=== PATIENT | female | born 1995 | race African-American/Black ===

== ENCOUNTER 2019-10-21 21:19 | Emergency (ER) | payer MEDICAID ==
[~2019-10-21] VITALS: Ht 180.3 cm; Wt 110.5 kg
[2019-10-21 21:30] VITALS: Ht 180.3 cm; Wt 110.5 kg
[2019-10-21] MEDS ORDERED: HYDROCHLOROTH12.5 M1 PO (21:31)
[2019-10-21] MEDS ORDERED: FOLIC ACID1 MG PO (21:32)
[2019-10-21 22:46] LABS: BASOPHILS 0.3 % (0-2); EOSINOPHILS 2.6 % (0-7); HEMATOCRIT 40.1 % (36.0-48.0); HEMOGLOBIN 12.9 g/dL (12-16); IMMATURE GRANULOCYTES 0.1 % (0-5); LYMPHOCYTES 48.6 % (15-50); MCH 23.9 pg (26.0-34.0); MCHC 32.2 g/dL (31.0-37.0); MCV 74.3 fL (80.0-100.0); MEAN PLATELET VOLUME 10.8 fL (7.4-10.4); MONOCYTES 7.2 % (2-11); NEUTROPHILS 41.2 % (40-80); PLATELET COUNT 236 10x3/uL (130-400); RDW 14.7 % (11.5-14.5); WBC 6.9 10x3/uL (4.8-10.8)
[2019-10-21 22:56] LABS: CALCIUM 9.2 mg/dL (8.5-10.1); CARBON DIOXIDE 22.7 mmol/L (21.0-32.0); POTASSIUM - SERUM 3.7 mmol/L (3.5-5.1)
[2019-10-21 23:02] LABS: ALBUMIN 4.3 g/dL (3.4-5.0); BILIRUBIN - TOTAL 0.34 mg/dL (0.2-1.3); C-REACTIVE PROTEIN 0.4 mg/dL (0.0-0.9); URIC ACID 5.9 mg/dL (2.6-7.2)
[2019-10-21] MEDS ORDERED: NAPROSYN500 MG PO (23:33)
[2019-10-22 00:09] VITALS: BP 122/70
== END 2019-10-22 00:11 | disposition home or self-care (01) ==
LOC: D.ER 21:19
PROVIDERS: Family Medicine
DX: S93.601A Unspecified sprain of right foot, initial encounter (principal); I10 Essential (primary) hypertension; J45.909 Unspecified asthma, uncomplicated; X58.XXXA Exposure to other specified factors, initial encounter

== ENCOUNTER 2020-05-23 18:30 | Emergency (ER) | payer BC ==
[~2020-05-23] VITALS: Ht 180.3 cm; Wt 110.0 kg
[~2020-05-23 18:30] MED LIST: FOLIC ACID1 MG PO; HYDROCHLOROTH12.5 M1 PO; NAPROSYN500 MG PO
[2020-05-23 18:50] VITALS: Ht 180.3 cm; Wt 110.0 kg
[2020-05-23] MEDS ORDERED: LISINOPRIL20 MG PO (18:51)
[2020-05-23] MEDS ORDERED: PHENERGAN25 M1 PO (18:51)
[2020-05-23] MEDS ORDERED: IMITREX100 MG PO (18:52)
[2020-05-23 19:22] LABS: BASOPHILS 0.3 % (0-2); HEMATOCRIT 38.9 % (36.0-48.0); HEMOGLOBIN 12.6 g/dL (12-16); IMMATURE GRANULOCYTES 0.1 % (0-5); LYMPHOCYTE ABS# 3.06 10x3/uL (1.18-3.74); LYMPHOCYTES 45.5 % (15-50); MCH 24.3 pg (26.0-34.0); MCHC 32.4 g/dL (31.0-37.0); MEAN PLATELET VOLUME 10.9 fL (7.4-10.4); MONOCYTES 7.3 % (2-11); NEUTROPHIL ABS# 2.88 10x3/uL (1.56-6.13); NEUTROPHILS 42.8 % (40-80); PLATELET COUNT 224 10x3/uL (130-400); RBC 5.19 10x6/uL (4.00-5.40); RDW 14.5 % (11.5-14.5); WBC 6.7 10x3/uL (4.8-10.8)
[2020-05-23 19:31] LABS: ANION GAP 17.4 mmol/L (8-16); CALCIUM 8.9 mg/dL (8.5-10.1); CARBON DIOXIDE 22.1 mmol/L (21.0-32.0); POTASSIUM - SERUM 3.5 mmol/L (3.5-5.1)
[2020-05-23 19:39] LABS: ALBUMIN 3.9 g/dL (3.4-5.0); BILIRUBIN - TOTAL 0.27 mg/dL (0.2-1.3); PROTEIN - SERUM 7.7 g/dL (6.4-8.2)
[2020-05-23 20:53] LABS: BILIRUBIN NEGATIVE (NEGATIVE); KETONE NEGATIVE (NEGATIVE); NITRITE NEGATIVE (NEGATIVE); UROBILINOGEN NORMAL mg/dL (< 2)
[2020-05-23 20:54] LABS: BACTERIA FEW HPF (NONE SEEN); WHITE CELLS - URINE 0-5 HPF (0-4)
[2020-05-23] MEDS ORDERED: HYDROCHLOROTHIA25 MG PO (20:55)
[2020-05-23] MEDS ORDERED: MACROBID100 MG PO (20:57)
[2020-05-23 21:11] VITALS: BP 148/81
== END 2020-05-23 21:11 | disposition home or self-care (01) ==
LOC: D.ER 18:30
PROVIDERS: Family Medicine
DX: I10 Essential (primary) hypertension (principal); R42 Dizziness and giddiness; N39.0 Urinary tract infection, site not specified; I49.8 Other specified cardiac arrhythmias